=== PATIENT | male | born 1955 | race Caucasian/White ===

== ENCOUNTER 2016-12-28 11:45 | Inpatient (IN) | payer MEDICARE ==
[~2016-12-28] VITALS: Ht 170.2 cm; Wt 93.6 kg
[2016-12-28] MEDS ORDERED: METO100T PO (12:16)
[2016-12-28] MEDS ORDERED: TEMA30CA PO (12:18)
[2016-12-28] MEDS ORDERED: LEVO125T4 PO (12:19)
[2016-12-28] MEDS ORDERED: RED600TA PO (12:22)
[2016-12-28] MEDS ORDERED: ASPI325T PO (12:22)
[2016-12-28] MEDS ORDERED: MULTTAB77 PO (12:22)
[2016-12-28] MEDS ORDERED: DIGO0.25 PO (12:27)
[2017-01-10] MEDS ORDERED: VANCOMYCIN HCL 1000 MG VIAL ONE (05:37)
[2017-01-10] MEDS ORDERED: SODIUM CHLOR 0.9% 250 ML INJ 250 ML ONE (05:37)
[2017-01-10] MEDS ORDERED: SODIUM CHLORID 0.9% 500 ML IV PRN (05:45)
[2017-01-10] MEDS ORDERED: LACTATED RINGER'S 1000 ML IV PRN (05:45)
[2017-01-10] MEDS ORDERED: VANCOMYCIN 1000 MG/NS 250 ML (for <70 kg) IV SCH ×2 (05:45)
[2017-01-10] MEDS ORDERED: INSULIN HUMAN REGULAR 1,000 UNITS/10 ML VIAL SQ PRN (05:45)
[2017-01-10] MEDS ORDERED: CHLORHEXIDINE GLUCONATE 4% SOLN 120 ML BTL TOPICAL SCH (05:45)
[2017-01-10] MEDS ORDERED: ceFAZolin 2 GM PREMIX 50 ML IV SCH (05:45)
[2017-01-10] MEDS ORDERED: POVIDONE IODINE 5% (ANTISEPSIS KIT) 4 APPLICATIONS EACH NARE PRN (05:45)
[2017-01-10] MEDS ORDERED: CHLORHEXIDINE GLUCONATE 2 % 1 PACK (2 CLOTHS) TOPICAL PRN (05:45)
[2017-01-10] MEDS ORDERED: METOPROLOL TARTRATE 25 MG TAB PO PRN (05:45)
[2017-01-10] MEDS ORDERED: MELO-1 PO (05:49)
[2017-01-10 05:52] VITALS: BP 122/82; PULSE 85; RESP 24; TEMP 97.8; O2SAT 98
[2017-01-10] MEDS ORDERED: fentaNYL CITRATE 250 MCG/5 ML AMP ONE (06:41)
[2017-01-10] MEDS ORDERED: MIDAZOLAM HCL 2 MG/2 ML VIAL ONE (06:41)
[2017-01-10] MEDS ORDERED: DEXAMETHASONE SOD PHOS 4 MG/ML VIAL ONE (06:41)
[2017-01-10] MEDS ORDERED: ACETAMINOPHEN 1000 MG/100 ML VIAL IV ONE (06:41)
[2017-01-10] MEDS ORDERED: FAMOTIDINE 20 MG/2 ML VIAL ONE (06:41)
[2017-01-10] MEDS ORDERED: GENTAMICIN SULFATE 80 MG/2 ML VIAL ONE (06:45)
[2017-01-10] MEDS ORDERED: SODIUM CHLORIDE 0.9% IV SCH (07:00)
[2017-01-10] MEDS ORDERED: EXPAREL PERI-ARTICULAR INJECTION (TOTAL VOL. 60 ML) P-ARTICULR SCH ×2 (07:00)
[2017-01-10] MEDS ORDERED: TRANEXAMIC ACID IV SCH (07:00)
[2017-01-10] MEDS ORDERED: XARE10TA PO (07:34)
[2017-01-10] MEDS ORDERED: WALKER/ADULT/FO1 MIS (07:34)
[2017-01-10] MEDS ORDERED: HYDR-3583 PO (07:34)
--- NOTE | 2017-01-10 07:35 | HHI.FF ---
Face to Face Verification Diagnosis: (1) S/P total hip arthroplasty Physical Therapy Gait training Hip: Total hip, Protocol: Left, Progress to weight bearing Left LE Weight Bearing: WB as tolerated Nursing Dressing Changes: Daily dressing change, Coverderm/Primapore (begin adding xeroform on POD 10) I have seen patient Casey Sparks on 01/10/17. My clinical findings support the need for the requested home health care services because: Ltd mobility - disease progression I certify that my clinical findings support that this patient is homebound because: Post-op weakness Torrey Lund Jan 10, 2017 07:34
[2017-01-10] MEDS: LACTATED RINGER'S 1000 ML INJ 1,000 ML IV SCH ×2 (09:14→21:15)
[2017-01-10] MEDS ORDERED: NALOXONE HCL 0.4 MG/ML AMP IV PRN (09:15)
[2017-01-10] MEDS ORDERED: ACETAMINOPHEN/HYDROcodone 325 MG/10 MG TAB PO PRN (09:15)
[2017-01-10] MEDS ORDERED: MORPHINE SULFATE 4 MG/ML INJ IV PUSH PRN (09:15)
[2017-01-10] MEDS ORDERED: ONDANSETRON HCL 4 MG/2 ML VIAL IVP PRN (09:15)
[2017-01-10] MEDS ORDERED: ACETAMINOPHEN/HYDROcodone 325 MG/7.5 MG TAB PO PRN (09:15)
[2017-01-10] MEDS ORDERED: SODIUM CHLORIDE 0.9% FLUSH 5 ML FLUSH IVF PRN (09:15)
--- NOTE | 2017-01-10 09:23 | PD.OP ---
cc: Kevin Landis MD Operative Report Date of Surgery: Jan 10, 2017 Preoperative Diagnosis: Severe left hip osteoarthritis Postoperative Diagnosis: Procedure: Left total hip arthroplasty Surgeon: Kevin Landis Dispersion Mixer(s): FARHANA Willard PA-C The surgical procedure was assisted by my physician assistant spa manager. My P.A. presence was necessary throughout this case for the manipulation and positioning of the surgical extremity. My P.A. was assisting me throughout the duration of this procedure. The skill set of a physician assistant spa manager was medically necessary to complete this procedure. During the surgical case the surgical first assistant was working at the back table and the physician assistant spa manager was directly assisting me. Operation and Findings: PLAN OF ACTIVITY Weight bear as tolerated. DRAINS: 7-mm NILA drain. IMPLANTS USED DePuy Corail size [13] collared stem with a size [54] [place] Gription cup and a [36+5] ceramic Biolox ceramic head. DETAILS OF PROCEDURE: This patient has a long history of hip pain. Patient was found to have severe osteoarthritis. The patient had radiographic evidence of joint space narrowing with [id number] arthritis and osteophytes around the acetabulum as well as the femoral head. There was also some cystic changes. The patient failed conservative treatment with pain medications, anti-inflammatories, physical therapy, assistive devices including a cane, as well as therapeutic injection of the hip. Patient's hip arthritis was limiting his ability to ambulate and perform activities of daily living. The patient wished to proceed with surgery and informed consent was obtained. Operative site was marked. I discussed both posterior approach and anterior approach with the patient and decision was made for anterior approach. Patient was brought to OR and placed on OR table. IV sedation and general anesthesia was administered by anesthesiologist. Patient positioned on a [place] table and was given IV antibiotics. Time-out procedure was performed. The hip and thigh were prepped with alcohol followed by Hibiclens. The thigh was draped in the usual sterile fashion. Clean Air Suite was used for this procedure. The procedure began with a 5-inch incision over the anterolateral thigh. Subcutaneous tissue was dissected with Bovie. The fascia over the tensa fasciae latae was incised. Care was taken to avoid injury to the lateral femoral cutaneous nerve. The tensor muscle was retracted laterally. Sartorius was retracted medially. Retractors were now placed. The reflected head of the rectus is now elevated. A capsulotomy was performed over the anterior head capsule. Sutures were placed to help retract the capsule. At this point the femoral head and neck were identified. With soft tissue protected, oscillating saw was used to make a cut through the femoral neck, the femoral head was now removed. At this point attention was turned to preparation of the acetabulum. The labrum was excised. The acetabulum was sequentially reamed up to size [54]. A [place] cup was now placed. Fluoroscopy was used to aid in identification of appropriate version. Cup was fully impacted and found to have excellent fit. Hole eliminator was now placed. The liner was now impacted into the cup. There were large osteophytes around the rim of the acetabulum. These were carefully excised with a rongeur. At this point the hip was externally rotated. A hook was placed around the proximal femur. The capsule was released off the lateral and medial femur. The hip was now extended and adducted. Retractors were placed around the proximal femur to allow for exposure. A box osteotome was used to remove the lateral cortex of the femoral neck. A broach was used to help lateralize the prosthesis. Canal finder was used to create a path down the canal. Next, the canal was sequentially broached up to size [13]. This was found to be an excellent fit. Calcar planer was placed. A standard head was placed, and the hip was reduced. The leg lengths were measured under fluoroscopy and found to be equal compared to right leg. The hip was now externally rotated and extended. The hip subluxated with extension. A +5 head was now placed. Patient now had excellent stability throughout range of motion. Trial broach was removed. The Corail stem was opened. Stem was fully impacted into the proximal femur in appropriate version. The femoral head was placed. The hip was again reduced. Fluoroscopy confirmed excellent alignment of prosthesis. The wound was thoroughly irrigated and capsule was closed with #1 Vicryl. The fascia over the tensor fasciae muscle was closed with #1 Vicryl, subcutaneous tissue was closed with 3-0 Vicryl and the skin was closed with lourdes and Dermabond skin closure. The capsule layers were injected with a mixture of saline and bupivicaine. Dressings were applied. The patient was transferred to Recovery Room in stable condition. Kevin Landis MD Jan 10, 2017 09:23
[2017-01-10] MEDS ORDERED: Post-op Orders (for Pharmacy) MISC XX ONE (09:38)
[2017-01-10] MEDS ORDERED: MORPHINE SULFATE 4 MG/ML INJ ONE (09:54)
[2017-01-10] MEDS ORDERED: METOPROLOL TARTRATE 5 MG/5 ML VIAL ONE (09:57)
[2017-01-10] MEDS ORDERED: TRANEXAMIC ACID INJ 1,000 MG in SODIUM CHLORIDE 0.9% INJ 100 ML IV ONE (10:00)
[2017-01-10] MEDS: KETOROLAC TROMETHAMINE 30 MG/ML (IVP) VIAL IV PUSH SCH ×2 (10:00→21:15)
[2017-01-10] MEDS ORDERED: DO NOT ADM ANY ANTICOAGULANT DRUGS PRN (10:00)
[2017-01-10] MEDS ORDERED: DILTIAZEM 125 MG/NS 100 ML IV SCH ×2 (10:30)
[2017-01-10] MEDS ORDERED: METOPROLOL TARTRATE 5 MG/5 ML VIAL IV SCH (10:30)
--- NOTE | 2017-01-10 11:01 | RADRPT ---
EXAM DATE/TIME: 01/10/2017 10:27 [facility] COMPARISON: No previous studies available for comparison. INDICATIONS : Evaluate left hip arthroplasty MEDICAL HISTORY : Hypertension. SURGICAL HISTORY : Left hip arthroplasty ENCOUNTER: Subsequent ACUITY: 1 day PAIN SCORE: 0/10 LOCATION: Left Hip FINDINGS: Left total hip arthroplasty is present. The hardware is intact. Alignment is anatomic. A surgical jose luis in is noted. Skin lourdes are present laterally. Visualized adjacent pelvis is intact and unremarkabl e. CONCLUSION: Satisfactory appearance of left MAC Janak Sewell MD on January 10, 2017 at 10:58 Board Certified Radiologist. This report was verified electronically.
[2017-01-10] MEDS ORDERED: *morphine SULFATE 8 MG/ML PERIprocedure ONLY ONE (11:23)
[2017-01-10] MEDS: ceFAZolin 2 GM PREMIX 50 ML IV SCH ×2 (13:00→19:22)
--- NOTE | 2017-01-10 14:38 | RADRPT ---
EXAM DATE/TIME: 01/10/2017 07:17 [facility] COMPARISON: No previous studies available for comparison. INDICATIONS : Total left hip replacement. MEDICAL HISTORY : None. SURGICAL HISTORY : None. ENCOUNTER: Initial ACUITY: 1 day PAIN SCORE: Non-responsive. LOCATION: Left hip. FINDINGS: A two view examination of the left hip was performed. Postsurgical changes following hip replacement are noted. Acetabular and femoral components are well-seated and satisfactorily aligned. There is no evidence of acute fracture. CONCLUSION: Satisfactory appearance of left hip status post hip replacement. Chris Aldana MD on January 10, 2017 at 14:35 Board Certified Radiologist. This report was verified electronically.
--- NOTE | 2017-01-10 14:43 | MB ---
cc: KRISTEL SALAS MD DATE OF CONSULTATION: 01/10/2017 REASON FOR CONSULTATION: This is a 61-year-old gentleman who is admitted to the hospital for total hip replacement. We have been asked to see him because of atrial fibrillation which is chronic for him. He is feeling well postoperatively. His heart rate is very well-controlled and he is in no distress. Denies any problems with chest pains shortness of breath or palpitations. PAST MEDICAL HISTORY: The past medical history is otherwise significant for hypothyroidism. MEDICATIONS: Medications at home have included 1. Digoxin 0.25 mg daily as well as. 2. Metoprolol 100 twice a day for rate control. 3. His anticoagulants have been held in anticipation of surgery. PHYSICAL EXAMINATION: VITAL SIGNS heart rate is approximately 80, blood pressure 130/70, NECK: No neck vein distension. LUNGS: Clear. CARDIOVASCULAR SYSTEM: Reveals a irregular rate and rhythm with no murmur or gallop. ABDOMEN: The abdomen was unremarkable. ASSESSMENT/PLAN: The patient has atrial fibrillation which is well-controlled. We will restart his anticoagulants once he is stable postoperatively and continue rate control for his atrial fibrillation. MD ERNESTO Dixon/monica /1:34 PM /2:37 PM
[2017-01-10 15:23] VITALS: O2SAT 98
--- NOTE | 2017-01-10 15:28 | HHI.CCPN ---
Subjective Remarks/Hospital Course Seen on arrival to [facility], s/p MAC. Permanent atrial fibrillation with controlled ventricular rate 62 - 77. Normotensive. Lungs: Clear. No wheezes or crackles, comfortable pattern. Heart: Irreg Irreg, No JVD. Extremities: Warm, well perfused. Skin: Warm,dry. Neuro: O X 3, alert, conversant. M/S grossly intact. Impression: Stable hemodynamic and respiratory function. Seen by Dr. Wallis, will continue his plan. Objective Vital Signs Date Time Temp Pulse Resp B/P Pulse Ox O2 Delivery O2 Flow Rate FiO2 01/10/17 11:45 83 19 95/53 96 Nasal Cannula 3 01/10/17 09:45 97.4 Allen Coronado MD Jan 10, 2017 15:28
[2017-01-10] MEDS ORDERED: PROPOFOL 200 MG/20 ML AMP IV ONE (15:44)
[2017-01-10] MEDS ORDERED: ePHEDrine/NS 25 MG/5 ML SYR IV ONE (15:45)
[2017-01-10] MEDS ORDERED: LACTATED RINGER'S 1000 ML INJ 1,000 ML IV ONE (15:45)
[2017-01-10] MEDS ORDERED: PHENYLEPH/NS 1000 MCG/10 ML SYR IV ONE (15:45)
[2017-01-10] MEDS ORDERED: NEOSTIGMINE 3 MG/3 ML SYR IV ONE (15:45)
[2017-01-10] MEDS ORDERED: ONDANSETRON HCL 4 MG/2 ML VIAL IV PUSH ONE (15:45)
[2017-01-10] MEDS ORDERED: DILTIAZEM HCL 25 MG/5 ML VIAL IV ONE (15:46)
[2017-01-10 16:00] VITALS: BP 112/70; PULSE 74; RESP 22; TEMP 97.7; O2SAT 98
[2017-01-10] MEDS: VANCOMYCIN INJ 1,000 MG in SODIUM CHLOR 0.9% 250 ML INJ 250 ML IV SCH (17:59)
[2017-01-10 19:12] VITALS: O2SAT 100
[2017-01-10 20:00] VITALS: BP 99/66; PULSE 84; PULSE 94; RESP 21; TEMP 98.1; O2SAT 98
[2017-01-10] MEDS: SODIUM CHLORIDE 0.9% FLUSH 5 ML FLUSH IVF SCH (21:00)
[2017-01-10] MEDS: METOPROLOL TARTRATE 100 MG TAB PO SCH (21:15)
[2017-01-10] MEDS: TEMAZEPAM 15 MG CAP PO SCH (21:15)
[2017-01-10 22:00] VITALS: PULSE 82
[2017-01-11] VITALS (11 sets, daily range): BP systolic 94–144; BP diastolic 57–93; PULSE 69–101; RESP 17–25; TEMP 96.5–98.6; O2SAT 91–100
[2017-01-11] MEDS: ceFAZolin 2 GM PREMIX 50 ML IV SCH (02:21)
[2017-01-11 03:58] LABS: HEMATOCRIT 33.3 % (39.0-51.0); REVIEW FLAG FINAL
[2017-01-11] MEDS: VANCOMYCIN INJ 1,000 MG in SODIUM CHLOR 0.9% 250 ML INJ 250 ML IV SCH (05:25)
[2017-01-11] MEDS: LEVOTHYROXINE SODIUM 125 MCG TAB PO SCH (05:26)
[2017-01-11] MEDS: DIGOXIN 0.25 MG TAB PO SCH (08:14)
[2017-01-11] MEDS: ENOXAPARIN SODIUM 40 MG/0.4 ML SYRINGE SQ SCH (08:14)
[2017-01-11] MEDS: METOPROLOL TARTRATE 100 MG TAB PO SCH ×2 (08:14→20:43)
[2017-01-11] MEDS: SODIUM CHLORIDE 0.9% FLUSH 5 ML FLUSH IVF SCH ×2 (08:14→20:44)
--- NOTE | 2017-01-11 08:14 | PD.ORT.PN ---
Subjective Subjective Remarks Casey is examined in the intensive care unit and is doing extremely well. They' ve discontinued his Cardizem drip. He is alert and oriented person place and time. He is been up ambulating with assistance. Pain is controlled. Vitals are stable. Objective Vitals Vital Signs Date Time Temp Pulse Resp B/P Pulse Ox O2 Delivery O2 Flow Rate FiO2 01/11/17 06:00 71 01/11/17 04:00 98.6 81 17 130/62 99 01/11/17 04:00 81 01/11/17 02:00 79 01/11/17 00:00 98.1 84 17 94/57 91 01/11/17 00:00 72 01/10/17 22:18 21 01/10/17 22:00 82 01/10/17 20:00 94 01/10/17 20:00 98.1 84 21 99/66 98 01/10/17 19:12 100 21 01/10/17 19:00 99 Room Air 01/10/17 16:00 97.7 74 22 112/70 98 01/10/17 16:00 Room Air 01/10/17 15:23 98 21 01/10/17 15:00 78 14 95/59 96 Nasal Cannula 3 01/10/17 14:45 73 13 98/54 96 Nasal Cannula 3 01/10/17 14:30 80 19 91/56 95 Nasal Cannula 3 01/10/17 14:15 74 18 86/50 98 Nasal Cannula 3 01/10/17 14:00 73 16 87/51 97 Nasal Cannula 3 01/10/17 13:45 86 15 93/56 96 Nasal Cannula 3 01/10/17 13:30 79 20 92/64 97 Nasal Cannula 3 01/10/17 13:15 81 18 95/53 96 Nasal Cannula 3 01/10/17 13:00 78 12 90/50 95 Nasal Cannula 3 01/10/17 12:45 108 18 100/56 99 Nasal Cannula 3 01/10/17 12:30 78 19 104/65 96 Nasal Cannula 3 01/10/17 12:15 87 19 90/55 95 Nasal Cannula 3 01/10/17 12:00 97.0 81 16 107/55 97 Nasal Cannula 3 01/10/17 11:45 83 19 95/53 96 Nasal Cannula 3 01/10/17 11:30 88 21 101/55 93 Nasal Cannula 3 01/10/17 11:15 79 16 103/64 95 Nasal Cannula 3 01/10/17 11:00 86 12 104/70 99 Nasal Cannula 3 01/10/17 10:45 86 12 104/68 99 Nasal Cannula 3 01/10/17 10:30 84 16 106/66 95 Nasal Cannula 3 01/10/17 10:15 82 13 106/66 97 Nasal Cannula 3 01/10/17 10:00 91 16 114/66 94 Nasal Cannula 3 01/10/17 09:45 97.4 136 12 102/69 97 Nasal Cannula 3 I/O 01/10/17 01/10/17 01/10/17 01/11/17 01/11/17 01/11/17 07:00 15:00 23:00 07:00 15:00 23:00 Intake Total 1599 ml 1200 ml 1490 ml Output Total 1690 ml 520 ml 1630 ml Balance -91 ml 680 ml -140 ml Intake Oral 1200 ml 630 ml IV Total 399 ml 860 ml Other 1200 ml Output Urine Total 1250 ml 350 ml 1600 ml Drainage Total 140 ml 170 ml 30 ml Estimated Blood Loss 300 ml Result Diagram: 01/11/17 0321 Imaging Last 24 hours Impressions Hip and Pelvis X-Ray 01/10/17913 Signed Impressions: Service Date/Time: December 10:27 - CONCLUSION: Satisfactory appearance of left MAC Janak Sewell MD Objective Remarks Left lower extremity: Clean dry dressings intact drain is removed. Compartments are soft with mild swelling. He has mild tenderness to palpation over the musculature of the hip. He has no pain with knee or ankle range of motion. Distally he has intact sensation with good capillary refills. He has strong dorsiflexion plantar flexion of foot Assessment & Plan Assessment and Plan Left total hip arthroplasty anterior approach due to severe osteoarthritis POD 1 If medically stable transfer to [address] [place] [address] Physical therapy weightbearing as tolerated twice a day Daily dressing changes with dry dressings over incision and Xeroform over drain site. Xeroform over incision we'll begin POD 10 Incentive spirometry SCDs and MANDEEP pablo [employer] Case management for discharge to home versus rehabilitation. Lives with son and son and works all day long. He is not sure if anybody would be with him during the day. Possible discharge to [facility] short-term if necessary otherwise plan for discharge to home with home health care. Follow-up with Dr. Landis or PA in 2 weeks James Denny Jr. Jan 11, 2017 08:14
[2017-01-11] MEDS: KETOROLAC TROMETHAMINE 30 MG/ML (IVP) VIAL IV PUSH SCH ×2 (09:42→20:43)
[2017-01-11] MEDS: LACTATED RINGER'S 1000 ML INJ 1,000 ML IV SCH ×2 (10:14→20:40)
--- NOTE | 2017-01-11 10:16 | HHI.CCPN ---
Subjective Remarks/Hospital Course Seen on arrival to [facility], s/p MAC. Permanent atrial fibrillation with controlled ventricular rate 62 - 77. Normotensive. Lungs: Clear. No wheezes or crackles, comfortable pattern. Heart: Irreg Irreg, No JVD. Extremities: Warm, well perfused. Skin: Warm,dry. Neuro: O X 3, alert, conversant. M/S grossly intact. Impression: Stable hemodynamic and respiratory function. Transfer to . Objective Vital Signs Date Time Temp Pulse Resp B/P Pulse Ox O2 Delivery O2 Flow Rate FiO2 01/11/17 10:00 83 01/11/17 08:00 98.4 25 142/88 96 01/11/17 07:00 Room Air 01/10/17 19:12 21 01/10/17 15:00 3 Intake and Output 01/10/17 01/10/17 01/10/17 07:59 15:59 23:59 Intake Total 1599 ml 1200 ml Output Total 1690 ml 520 ml Balance -91 ml 680 ml Result Diagram: 01/11/17 0321 Allen Coronado MD Jan 11, 2017 10:16
[2017-01-11] MEDS: DOCUSATE SODIUM 100 MG CAP PO SCH (20:44)
[2017-01-11] MEDS: TEMAZEPAM 15 MG CAP PO SCH (20:44)
[2017-01-11] MEDS ORDERED: MAGNESIUM HYDROXIDE SUSP 30 ML CUP PO PRN (23:45)
[2017-01-12] VITALS: BP 100/69; PULSE 97; RESP 20; TEMP 98; O2SAT 98
[2017-01-12 04:00] VITALS: BP 108/72; PULSE 94; RESP 18; TEMP 97.9; O2SAT 99
[2017-01-12] MEDS: LEVOTHYROXINE SODIUM 125 MCG TAB PO SCH (05:40)
[2017-01-12 08:00] VITALS: BP 128/60; PULSE 86; RESP 16; TEMP 100.1; O2SAT 99
[2017-01-12] MEDS: ENOXAPARIN SODIUM 40 MG/0.4 ML SYRINGE SQ SCH (08:52)
[2017-01-12] MEDS: SODIUM CHLORIDE 0.9% FLUSH 5 ML FLUSH IVF SCH ×2 (08:53→20:04)
[2017-01-12] MEDS: DIGOXIN 0.25 MG TAB PO SCH (08:53)
[2017-01-12] MEDS: DOCUSATE SODIUM 100 MG CAP PO SCH ×2 (08:53→20:02)
[2017-01-12] MEDS: METOPROLOL TARTRATE 100 MG TAB PO SCH ×2 (08:53→20:02)
[2017-01-12] MEDS: LACTATED RINGER'S 1000 ML INJ 1,000 ML IV SCH ×2 (11:14→22:43)
[2017-01-12 12:00] VITALS: BP 100/65; PULSE 80; RESP 14; TEMP 97.6; O2SAT 100
--- NOTE | 2017-01-12 14:24 | PD.ORT.PN ---
Subjective Subjective Remarks Patient comfortable. Pain controlled. Objective Vitals Vital Signs Date Time Temp Pulse Resp B/P Pulse Ox O2 Delivery O2 Flow Rate FiO2 01/12/17 12:00 97.6 80 14 100/65 100 01/12/17 08:00 100.1 86 16 128/60 99 01/12/17 04:00 97.9 94 18 108/72 99 01/12/17 00:00 98.0 97 20 100/69 98 01/11/17 20:00 97.1 101 20 133/93 100 01/11/17 17:59 95 21 01/11/17 16:00 97.3 69 18 144/80 100 I/O 01/11/17 01/11/17 01/11/17 01/12/17 01/12/17 01/12/17 07:00 15:00 23:00 07:00 15:00 23:00 Intake Total 1490 ml 1448 ml 700 ml 240 ml Output Total 1630 ml 200 ml 450 ml Balance -140 ml 1248 ml 700 ml -210 ml Intake Oral 630 ml 1080 ml 700 ml 240 ml IV Total 860 ml 368 ml Output Urine Total 1600 ml 200 ml 450 ml Drainage Total 30 ml # Voids 5 2 # Bowel Movements 0 0 0 Result Diagram: 01/11/17 0321 Imaging Last 24 hours Impressions Hip and Pelvis X-Ray 01/10/17913 Signed Impressions: Service Date/Time: December 10:27 - CONCLUSION: Satisfactory appearance of left MAC Janak Sewell MD Objective Remarks Left lower extremity: Clean dry dressings intact drain is removed. Compartments are soft with mild swelling. He has mild tenderness to palpation over the musculature of the hip. He has no pain with knee or ankle range of motion. Distally he has intact sensation with good capillary refills. He has strong dorsiflexion plantar flexion of foot Assessment & Plan Assessment and Plan Left total hip arthroplasty anterior approach due to severe osteoarthritis POD 2 Physical therapy weightbearing as tolerated twice a day Daily dressing changes with dry dressings over incision and Xeroform over drain site. Xeroform over incision we'll begin POD 10 Incentive spirometry SCDs and MANDEEP hose Pain management - Tramadol DVT prophylaxis - Lovenox Case management for discharge to home with [facility] tomorrow. . Follow-up with Dr. Landis or PA in [address] Barnett spoke and evaluated patient. Zoran Scott Jan 12, 2017 14:24
[2017-01-12] MEDS: traMADol HCL 50 MG TAB PO PRN ×2 (15:12→21:36)
[2017-01-12 16:00] VITALS: BP 107/74; PULSE 81; PULSE 87; RESP 16; TEMP 95.4; O2SAT 97
[2017-01-12 20:00] VITALS: BP 106/73; PULSE 95; RESP 22; TEMP 99.4; O2SAT 97
[2017-01-12] MEDS: TEMAZEPAM 15 MG CAP PO SCH (20:02)
[2017-01-13] VITALS: BP 118/84; PULSE 80; RESP 20; TEMP 98; O2SAT 98
[2017-01-13] MEDS: traMADol HCL 50 MG TAB PO PRN ×2 (03:42→10:33)
[2017-01-13 04:00] VITALS: BP 106/70; PULSE 80; RESP 18; TEMP 97.1; O2SAT 96
[2017-01-13] MEDS: LEVOTHYROXINE SODIUM 125 MCG TAB PO SCH (06:00)
--- NOTE | 2017-01-13 07:54 | PD.ORT.PN ---
Subjective Subjective Remarks Patient comfortable. Patient states Ultram is effective with his pain and is ready to leave today. Objective Vitals Vital Signs Date Time Temp Pulse Resp B/P Pulse Ox O2 Delivery O2 Flow Rate FiO2 01/13/17 04:00 97.1 80 18 106/70 96 01/13/17 00:00 98.0 80 20 118/84 98 01/12/17 20:00 99.4 95 22 106/73 97 01/12/17 16:00 87 01/12/17 16:00 95.4 81 16 107/74 97 01/12/17 12:00 97.6 80 14 100/65 100 01/12/17 08:00 100.1 86 16 128/60 99 I/O 01/12/17 01/12/17 01/12/17 01/13/17 01/13/17 01/13/17 07:00 15:00 23:00 07:00 15:00 23:00 Intake Total 240 ml 720 ml 700 ml 500 ml Output Total 450 ml 800 ml Balance -210 ml -80 ml 700 ml 500 ml Intake Oral 240 ml 720 ml 700 ml 500 ml Output Urine Total 450 ml 800 ml # Voids 3 2 2 # Bowel Movements 0 1 2 0 Result Diagram: 01/11/17 0321 Imaging Last 24 hours Impressions Hip and Pelvis X-Ray 01/10/17 0914 Signed Impressions: Service Date/Time: , January 10, 2017 10:27 - CONCLUSION: Satisfactory appearance of left MAC Janak Sewell MD Objective Remarks Left lower extremity: Clean dry dressings intact drain is removed. Compartments are soft with mild swelling. He has mild tenderness to palpation over the musculature of the hip. He has no pain with knee or ankle range of motion. Distally he has intact sensation with good capillary refills. He has strong dorsiflexion plantar flexion of foot Assessment & Plan Assessment and Plan Left total hip arthroplasty anterior approach due to severe osteoarthritis POD 3 Physical therapy weightbearing as tolerated twice a day Daily dressing changes with dry dressings over incision and Xeroform over drain site. Xeroform over incision we'll begin POD 10 Incentive spirometry SCDs and MANDEEP hose Pain management - Tramadol DVT prophylaxis - Lovenox Orthopedically stable for discharge today Case management for discharge to home with [facility]. Follow-up with Dr. Landis or PA in 2 weeks Zoran Scott 2, 2017 07:54
[2017-01-13 08:00] VITALS: BP 97/69; PULSE 87; RESP 16; TEMP 95.4; O2SAT 96
[2017-01-13] MEDS: DOCUSATE SODIUM 100 MG CAP PO SCH (08:28)
[2017-01-13] MEDS: METOPROLOL TARTRATE 100 MG TAB PO SCH (08:28)
[2017-01-13] MEDS: DIGOXIN 0.25 MG TAB PO SCH (08:28)
[2017-01-13] MEDS: ENOXAPARIN SODIUM 40 MG/0.4 ML SYRINGE SQ SCH (08:28)
[2017-01-13] MEDS: SODIUM CHLORIDE 0.9% FLUSH 5 ML FLUSH IVF SCH (08:29)
== END 2017-01-13 10:47 | disposition home health service (06) | DRG 470 ==
LOC: HSDI 01-10 05:14 → N03B 01-10 14:58 → N06A 01-11 11:59
PROVIDERS: ADMIT Orthopaedic Surgery Orthopaedic Trauma; ATTEND Orthopaedic Surgery Orthopaedic Trauma
PROC: 0SRB03A Replacement of Left Hip Joint with Ceramic Synthetic Substitute, Uncemented, Open Approach (ICD-10-PCS; principal; 2017-01-10 06:52)
DX: M16.12 Unilateral primary osteoarthritis, left hip (principal); I48.2 Chronic atrial fibrillation; E03.9 Hypothyroidism, unspecified
CPT/HCPCS: 73501; 73502; 76000; 85014; 85018; 86850; 86900; 86901; 87641; C1776; C9290; J0131; J0690; J1100; J1580; J1650; J1885; J2250; J2270; J2370; J2405; J2710; J3010; J3370; J7050; J7120

== ENCOUNTER → 2016-12-28 | Outpatient (CLI) | payer MEDICARE ==
[~2016-12-28] MED LIST: ASPI325T PO; DIGO0.12 PO; DIGO0.25 PO; LANO0.2510 PO; LEVO125T4 PO; LEVO25TA36 PO; METO100T PO; MULTTAB77 PO; RED600TA PO; TEMA30CA PO; ZOCO80TA PO
--- NOTE | 2016-12-28 13:09 | RADRPT ---
EXAM DATE/TIME: 12/28/2016 12:54 [facility] COMPARISON: No previous studies available for comparison. INDICATIONS : Pre op total hip. Evaluate for pneumothorax, pneumonia, or other communicable diseases. MEDICAL HISTORY : Hypertension. SURGICAL HISTORY : None. ENCOUNTER: Initial ACUITY: 1 day PAIN SCORE: 0/10 LOCATION: Bilateral chest FINDINGS: PA and lateral views of the chest demonstrate the lungs to be symmetrically aerated without evidence of mass, infiltrate or effusion. The cardiomediastinal contours are unremarkable. Mild degenerative changes are present in the thoracic spine. CONCLUSION: No acute disease. Valentin Wesley MD FACR on December 28, 2016 at 13:07 Board Certified Radiologist. This report was verified electronically.
[2016-12-28 13:44] LABS: BASOPHIL % 0.5 % (0.0-2.0); EOSINOPHIL % 0.4 % (0.0-4.0); HEMATOCRIT 41.8 % (39.0-51.0); HEMO FLAGS DIFF FINAL; LYMPH % 17.2 % (9.0-44.0); LYMPHOCYTE # 1.2 TH/MM3 (1.0-4.8); MEAN CELL VOLUME 103.4 FL (80.0-100.0); MEAN CORPUSCULAR HGB CONC 33.8 % (32.0-36.0); MONO % 6.8 % (0.0-8.0); NEUT % 75.1 % (16.0-70.0); PLATELET COUNT 155 TH/MM3 (150-450); RED BLOOD COUNT 4.04 MIL/MM3 (4.50-5.90); WHITE BLOOD COUNT 6.7 TH/MM3 (4.0-11.0)
[2016-12-28 13:52] LABS: BACTERIA, URINE RARE /hpf; BLOOD, URINE NEG (NEG); COMMENT (UR) CULT NOT INDICATED; CULTURE IF INDICATED CULT NOT INDICATED; GLUCOSE,URINE NEG (NEG); HYALINE CAST, URINE 4 /lpf (RARE); KETONE, URINE NEG (NEG); NITRITE,URINE NEG (NEG); PH, URINE 5.5 (5.0-8.5); SQUAMOUS EPITHELIAL CELL URINE <1 /hpf (0-5); URINE COLOR YELLOW (YELLW/STRAW)
[2016-12-28 13:58] LABS: APTT (PATIENT) 24.9 SEC (24.3-30.1); PROTHROMBIN TIME - PATIENT 11.1 SEC (9.8-11.6)
[2016-12-28 14:11] LABS: POTASSIUM 4.3 MEQ/L (3.5-5.1)
--- NOTE | 2016-12-29 13:36 | EKG ---
Date Performed: 12/28/2016 Time Performed: 12:01:53 PTAGE: 61 years EKG: ATRIAL FIBRILLATION MARKED LEFT AXIS DEVIATION LOW QRS VOLTAGE RIGHT BUNDLE BRANCH BLOCK AB NORMAL ECG PREVIOUS TRACING : 01/28/2012 11.19 Compared to prior tracing no significant change DOCTOR: Stew Hurst Interpretating Date/Time 12/29/2016 13:32:59
== END ==
LOC: CPRE 11:36
PROVIDERS: ATTEND Orthopaedic Surgery Orthopaedic Trauma
DX: Z01.812 Encounter for preprocedural laboratory examination (principal); Z01.810 Encounter for preprocedural cardiovascular examination; M79.609 Pain in unspecified limb; I48.91 Unspecified atrial fibrillation; I45.10 Unspecified right bundle-branch block; Z96.60 Presence of unspecified orthopedic joint implant; Z79.01 Long term (current) use of anticoagulants; Z13.9 Encounter for screening, unspecified
CPT/HCPCS: 36415; 71020; 80048; 81001; 85025; 85610; 85730; 93005

== ENCOUNTER 2017-08-14 11:14 | Emergency (ER) | payer MEDICARE ==
[~2017-08-14] VITALS: Ht 170.2 cm; Wt 92.0 kg
[~2017-08-14 11:14] MED LIST changes: +ASPI-183 PO; -ASPI325T PO; -DIGO0.12 PO; +HYDR-3583 PO; -LANO0.2510 PO; -LEVO25TA36 PO; +MELO15TA20 PO; +WALKER/ADULT/FO1 MIS; +XARE10TA PO; -ZOCO80TA PO
[2017-08-14 11:24] VITALS: BP 149/94; PULSE 77; RESP 16; TEMP 98; O2SAT 98
--- NOTE | 2017-08-14 11:40 | PD ---
HPI Chief Complaint: Musculoskeletal Complaint Time Seen by Provider: 11:27 Travel History International Travel<30 days: No Contact w/Intl Traveler<30days: No Traveled to known affect area: No History of Present Illness HPI 62-year-old male with history of left total hip arthroplasty, lumbar fusion, presents for evaluation of lower back pain and left hip pain. He reports chronic soreness in his lower back and left hip for which she takes meloxicam. He reports that 2 days ago he was walking up some stairs when he slipped and fell forward. Since then he has had worsening pain in his lower back and left hip. Pain is a soreness which is constant and worse with movement, only partially relieved with meloxicam. Denies any incontinence of urine/stool, saddle anesthesia. He denies any other injuries and he has no other complaints at this time. PFSH Past Medical History Arthritis: No Asthma: No Atrial Fibrillation: Yes Blood Disorders: No Anxiety: Yes Depression: Yes Heart Rhythm Problems: No Cancer: No High Cholesterol: Yes Chest Pain: No Congestive Heart Failure: No COPD: No Cerebrovascular Accident: No Diminished Hearing: No Endocrine: Yes GERD: No Genitourinary: No Headaches: No Hepatitis: No Hiatal Hernia: No Hypertension: Yes Immune Disorder: No Implanted Vascular Access Dvce: Yes Insomnia: Yes Kidney Stones: No Medical other: Yes (UMBILICAL, HYDROCELE) Musculoskeletal: Yes (CHRONIC LOWER BACK PAIN, LEFT HIP) Neurologic: No Psychiatric: No Reproductive: No Respiratory: No Immunizations Current: Yes Migraines: No Myocardial Infarction: No Renal Failure: No Seizures: No Sleep Apnea: No Ulcer: No Past Surgical History Abdominal Surgery: No AICD: No Appendectomy: No Body Medical Devices: LUMBAR PLATE AND SCREWS Cardiac Surgery: No Cholecystectomy: No Ear Surgery: No Endocrine Surgery: No Eye Surgery: Yes (LASIk) Genitourinary Surgery: No Gynecologic Surgery: No Joint Replacement: No Oral Surgery: Yes (TONSILLECTOMY) Pacemaker: No Thoracic Surgery: No Social History Alcohol Use: Yes (3-4 TIMES A WEEK) Tobacco Use: No Substance Use: Yes (ETOH IN PAST) Allergies-Medications (Allergen,Severity, Reaction): Coded Allergies: No Known Allergies (Verified Adverse Reaction, Unknown, 08/14/17) Reported Meds & Prescriptions Reported Meds & Active Scripts Active Baclofen 10 Mg Tab 10 Mg PO Q8HR 7 Days Reported Meloxicam 15 Mg Tab 15 Mg PO DAILY Digoxin 0.25 Mg Tab 0.25 Mg PO DAILY Aspirin 325 Mg Tab 325 Mg PO DAILY Multi-Day (Multiple Vitamins W/ Iron) 1 Tab Tab 1 Tab PO DAILY Red Yeast Rice (Red Yeast Rice Extract) 600 Mg Tab 1 Tab PO DAILY Levothyroxine (Levothyroxine Sodium) 125 Mcg Tab 125 Mcg PO DAILY Temazepam 30 Mg Cap 30 Mg PO HS Metoprolol Tartrate 100 Mg Tab 100 Mg PO BID Review of Systems Except as stated in HPI: all other systems reviewed are Neg Physical Exam Narrative GENERAL: Well-developed well-nourished male in no acute distress SKIN: Warm and dry. HEAD: Atraumatic. Normocephalic. EYES: Pupils equal and round. No scleral icterus. No injection or drainage. ENT: No nasal bleeding or discharge. Mucous membranes pink and moist. NECK: Trachea midline. No JVD. CARDIOVASCULAR: Regular rate and rhythm. No murmur appreciated. RESPIRATORY: No accessory muscle use. Clear to auscultation. Breath sounds equal bilaterally. GASTROINTESTINAL: Abdomen soft, non-tender, nondistended. Hepatic and splenic margins not palpable. MUSCULOSKELETAL: No obvious deformities. Mild tenderness to palpations lumbar paravertebral musculature and lateral left hip. Patient is ambulatory in the ED with normal gait. 5 out of 5 muscle strength in lower extremities. NEUROLOGICAL: Awake and alert. No obvious cranial nerve deficits. Motor grossly within normal limits. Normal speech. Data Data Last Documented VS Vital Signs Date Time Temp Pulse Resp B/P (MAP) Pulse Ox O2 Delivery O2 Flow Rate FiO2 08/14/17 11:24 98.0 77 16 149/94 (112) 98 Orders Orders Hip, Uni(Ap&Lat) Wo Ap Pelvis (08/14/17 11:36) Spine, Lumbar - Ltd (Ap & Lat) (08/14/17 ) Ed Discharge Order (08/14/17 12:51) [facility] Medical Decision Making Medical Screen Exam Complete: Yes Emergency Medical Condition: Yes Medical Record Reviewed: Yes Differential Diagnosis Lumbar strain, herniated mucous pulposus, compression fracture, spinal stenosis hardware malfunction Narrative Course 62-year-old male presents with increased lower back pain and left hip pain after a fall 2 days ago. X-ray imaging were obtained revealing no acute abnormalities. His examination and history are consistent with lumbar strain. He is to continue taking his meloxicam. She'll be discharged with a short course of muscle relaxants. Diagnosis Primary Impression: Lumbar strain Additional Impression: Left hip pain Additional Instructions: Do not drive or drink alcohol when taking this medication. Avoid strenuous activity or heavy lifting. Follow-up with primary care physician next week. Med/Other Pt SpecificInfo: Prescription(s) given Scripts Baclofen (Baclofen) 10 Mg Tab 10 MG PO Q8HR for 7 Days, TAB 0 Refills Prov: Norma Valverde MD 08/14/17 Disposition: 01 DISCHARGE HOME Condition: Stable Dakota Martinez Aug 14, 2017 11:39
--- NOTE | 2017-08-14 12:35 | RADRPT ---
EXAM DATE/TIME: 08/14/2017 12:09 [facility] COMPARISON: HIP LEFT (AP&LAT 2/3VWS) WO AP PELVIS, January 10, 2017, 7:17. INDICATIONS : Left hip pain post fall. MEDICAL HISTORY : None. SURGICAL HISTORY : Fusion, lumbar. Left total hip replacement ENCOUNTER: Initial ACUITY: 3 days PAIN SCORE: 10/10 LOCATION: Left posterior hip FINDINGS: AP and lateral views of the left hip joint following recent total hip arthroplasty demonstrates a met allic acetabular and femoral components in place. These are non-cemented. No unexpected finding is id entified. Visualized pelvic bones demonstrate no acute abnormality. Inferior lumbar spine hardware is present. CONCLUSION: Expected findings following left total hip arthroplasty. No acute abnormality is identified. Janak Payton MD on August 14, 2017 at 12:32 Board Certified Radiologist. This report was verified electronically.
--- NOTE | 2017-08-14 12:48 | RADRPT ---
EXAM DATE/TIME: 08/14/2017 12:09 [facility] COMPARISON: No previous studies available for comparison. INDICATIONS : Low back pain post fall MEDICAL HISTORY : None. SURGICAL HISTORY : Fusion, lumbar. Left total hip replacement ENCOUNTER: Initial ACUITY: 3 days PAIN SCORE: 10/10 LOCATION: Lumbar spine FINDINGS: 3 views of the lumbar spine demonstrate 5 nonrib-bearing lumbar vertebral bodies with mild rightward convex curvature. There is posterior spinal hardware at L4-L5 consisting of pedicular screws. Materia l is also present at the L4-L5 disc space. No fracture or compression deformity is present. The hardw are demonstrates no finding to indicate failure or loosening. There is degenerative disc disease at L 2-L3 and L3-L4. Pelvic bones and soft tissues demonstrate no acute finding. Left total hip arthroplasty hardware is p resent. CONCLUSION: No acute lumbar spine abnormality is identified. There is mild dextroscoliosis with multilevel degene rative disc disease. Janak Payton MD on August 14, 2017 at 12:45 Board Certified Radiologist. This report was verified electronically.
[2017-08-14] MEDS ORDERED: BACL10TA PO (12:51)
== END 2017-08-14 13:15 | disposition home or self-care (01) ==
LOC: PHEFT 11:14
DX: S39.012A Strain of muscle, fascia and tendon of lower back, initial encounter (principal); M25.552 Pain in left hip; I10 Essential (primary) hypertension; W10.9XXA Fall (on) (from) unspecified stairs and steps, initial encounter
CPT/HCPCS: 72100; 73502; 99284